=== PATIENT | male | born 1970 | race Caucasian/White ===

== ENCOUNTER → 2020-11-15 | Day surgery (SDC) | payer OTHER ==
[~2020-11-15] MED LIST: ASPIRIN EC81 MG PO; BUPROPION XL300 MG PO; DESVENLAFAXINE50 M3 PO; LISINOPRIL40 MG PO; LOVAZA1 GM PO
[2020-11-15 07:57] LABS: HCT 45.4 % (42.0-52.0); HGB 15.9 g/dl (13.2-18.0); MCV 97.2 fL (78.0-100.0); MPV 9.8 fL (6.0-9.5); RBC 4.67 M/uL (4.70-6.00); RDW 12.8 % (11.5-14.0); WBC 7.8 K/uL (4.0-10.5)
[2020-11-15 08:14] LABS: ALBUMIN 3.5 g/dL (3.4-5.0); BILIRUBIN - TOTAL 0.7 mg/dL (0.2-1.0); BUN/CREAT RATIO (CALC) 15.6 RATIO; CREATININE 0.9 mg/dL (0.67-1.17); GLOBULIN (CALCULATION) 3.4 g/dL; POTASSIUM 4.5 mmol/L (3.5-5.1); TOTAL PROTEIN 6.9 g/dL (6.4-8.2)
== END | disposition home or self-care (01) ==
LOC: FAS 07:12
PROVIDERS: Surgery
DX: Z12.11 Encounter for screening for malignant neoplasm of colon (principal); K42.9 Umbilical hernia without obstruction or gangrene; M19.079 Primary osteoarthritis, unspecified ankle and foot; I10 Essential (primary) hypertension; I25.2 Old myocardial infarction; Z95.818 Presence of other cardiac implants and grafts; Z79.899 Other long term (current) drug therapy; Z20.822 Contact with and (suspected) exposure to COVID-19
CPT/HCPCS: 36415; 80053; J2250; J2704; J7120